=== PATIENT | male | born 1990 | race Caucasian/White ===

== ENCOUNTER → 2019-02-23 07:35 | Outpatient (CLI) | payer OTHER, SELFPAY ==
--- NOTE | 2019-02-23 11:39 | NEURO ---
NCS and/or EMG Patient Report DATE OF SERVICE: 02/23/19 This is a left upper extremity nerve conduction study performed at the behest of Dr. Colin jarquin on this 28-year-old male with a history of pain in his left wrist. He also says that he has a ganglion cyst that comes and goes. Left upper extremity sensory motor nerve conduction studies performed. This is essentially normal study however there is very mild prolongation of the median motor distal latencies. The patient describes pain at the base of his first MP joint and pain over the dorsum of his hand which does not correlate with nerve or muscle distribution. Impression: Essentially normal study. Evidence of very mild carpal tunnel syndrome however this is likely not clinically significant. EMG testing was deferred. Dictated but not proofread
== END ==
PROVIDERS: Family Provider Internal Medicine; PCP Internal Medicine
DX: M54.16 Radiculopathy, lumbar region (principal); M17.0 Bilateral primary osteoarthritis of knee; R20.0 Anesthesia of skin
CPT/HCPCS: 95910